=== PATIENT | female | born 1975 | race Caucasian/White ===

== ENCOUNTER 2019-05-15 10:22 | Emergency (ER) | payer SELFPAY ==
--- NOTE | 2019-05-15 10:32 | ED Physician Documentation ---
General Adult - HISTORIAN Historian: patient - HPI Stated Complaint: spider bite on abdomen Chief Complaint: Insect Bite Onset: days ago (1) Timing: still present Severity: moderate Further Comments: yes (She states she feels she has had a spider bite. No fever. No nasuea. No spiders have been seen. Mild pain. She did get bit at work. She has not taken any OTC Meds) - ROS CONST: no problems MS/SKIN/LYMPH: rash - PAST HX Past History: none Immunizations: UTD Allergies/Adverse Reactions: Allergies Allergy/AdvReac Type Severity Reaction Status Date / Time No Known Drug Allergies Allergy Unverified 12/04/13 15:26 Home Medications: Ambulatory Orders Medication Instructions Recorded NK 05/15/19 - SOCIAL HX Smoking History: non-smoker Alcohol Use: none Drug Use: none - FAMILY HX Family History: No - REVIEWED ASSESSMENTS Nursing Assessment Reviewed: Yes Vitals Reviewed: Yes General Adult Physical Exam - PHYSICAL EXAM GENERAL APPEARANCE: no distress EENT: eye inspection normal, no signs of dehydration NECK: normal inspection RESPIRATORY: no resp distress, chest non-tender, breath sounds normal CVS: reg rate & rhythm, heart sounds normal ABDOMEN: soft, no distension, non-tender (although tender around site ) BACK: normal inspection, no CVA tenderness SKIN: warm/dry, other (10 cm x 7 cm redness with crusted middle warm to touch. area with mild swelling redness ) EXTREMITIES: non-tender, normal range of motion, no evidence of injury, no edema NEURO: oriented X3 Discharge Clincal Impression: Abscess Referrals: Primary Doctor,No [Primary Care Provider] - 2 Days Comments: 1. Bactrim take 1 by mouth twice daily x 10 days 2. Cool compress 3. Watch line of redness 4. Follow up with PCP in 2-4 days 5. Return to ER for any increased concerns Condition: Stable Disposition: 01 HOME, SELF-CARE Decision to Admit: NO Date of Decison to Admit: 05/15/19 Decision Time: 10:44
[2019-05-15 10:50] VITALS: BP 108/70
== END 2019-05-15 10:45 | disposition home or self-care (01) ==
LOC: ED 10:22
DX: L02.211 Cutaneous abscess of abdominal wall (principal)
CPT/HCPCS: 99283; 99284